=== PATIENT | female | born 1975 | race Caucasian/White ===

== ENCOUNTER 2024-01-06 14:53 | Outpatient (CLI) | payer BC, OTHER | END 2024-01-06 14:54 | disposition home or self-care (01) | LOC: BICMAMMO 14:53 | PROVIDERS: ATTEND Family Medicine | DX: Z12.31 Encounter for screening mammogram for malignant neoplasm of breast (principal) | CPT/HCPCS: 77063; 77067 ==

== ENCOUNTER 2025-01-24 11:41 | Outpatient (CLI) | payer OTHER | END 2025-01-24 11:42 | disposition home or self-care (01) | LOC: SCSRAD 11:41 | PROVIDERS: ATTEND Family Medicine | DX: M25.531 Pain in right wrist (principal) ==